=== PATIENT | male | born 1990 | race African-American/Black ===

== ENCOUNTER 2016-12-28 10:53 | Emergency (ER) | payer SELFPAY ==
[~2016-12-28] VITALS: Ht 170.2 cm; Wt 62.0 kg
[2016-12-28 11:08] VITALS: BP 119/75
[2016-12-28] MEDS ORDERED: IBUPROFEN 200 MG TABLET ONE (12:17)
[2016-12-28] MEDS ORDERED: HYDROcodone/APAP 5/325 TABLET ONE (12:17)
[2016-12-28] MEDS ORDERED: HYDROcodone/APAP 5/325 TABLET PO ONE (12:30)
[2016-12-28] MEDS ORDERED: IBUPROFEN 200 MG TABLET PO ONE (12:30)
== END 2016-12-28 13:25 | disposition home or self-care (01) ==
LOC: ED 13:19
DX: S62.326A Displaced fracture of shaft of fifth metacarpal bone, right hand, initial encounter for closed fracture (principal); X58.XXXA Exposure to other specified factors, initial encounter; Y93.89 Activity, other specified; Y92.098 Other place in other non-institutional residence as the place of occurrence of the external cause; Y99.8 Other external cause status
CPT/HCPCS: 29125

== ENCOUNTER 2018-03-12 03:58 | Emergency (ER) | payer SELFPAY ==
[~2018-03-12] VITALS: Ht 167.6 cm; Wt 60.0 kg
[2018-03-12] MEDS ORDERED: METHOCARBAMOL 750 MG TABLET ONE (04:46)
[2018-03-12] MEDS ORDERED: KETOROLAC 30 MG/1 ML ONE (04:46)
[2018-03-12] MEDS ORDERED: KETOROLAC 30 MG/1 ML IM ONE (05:00)
[2018-03-12] MEDS ORDERED: METHOCARBAMOL 750 MG TABLET PO ONE (05:00)
[2018-03-12 05:45] VITALS: BP 138/74
== END 2018-03-12 06:17 | disposition home or self-care (01) ==
LOC: ED 06:15
DX: S39.012A Strain of muscle, fascia and tendon of lower back, initial encounter (principal); S00.83XA Contusion of other part of head, initial encounter; F10.220 Alcohol dependence with intoxication, uncomplicated; F17.210 Nicotine dependence, cigarettes, uncomplicated; Y04.0XXA Assault by unarmed brawl or fight, initial encounter; Y93.89 Activity, other specified; Y92.89 Other specified places as the place of occurrence of the external cause; Y99.8 Other external cause status; Z71.41 Alcohol abuse counseling and surveillance of alcoholic
CPT/HCPCS: 72110; 96372; 99284; J1885